=== PATIENT | male | born 1995 | race Hispanic/Latino ===

== ENCOUNTER → 2018-05-12 | Outpatient (CLI) | payer OTHER ==
[~2018-05-12] MED LIST: PROHANCE 279.3MG/ML 5ML VIAL (A9576) As Ordered ONE
--- NOTE | 2018-05-12 10:56 | REP ---
MRI LEFT KNEE WITHOUT AND WITH CONTRAST: HISTORY: Pain in the left knee. Comparison left knee MRI study is from December 22, 2016. Comparison plain films are from October 17, 2016. TECHNIQUE: Postcontrast imaging was included at the insistence of the referring provider. 10 mL of intravenous ProHance was utilized. Pre- and post- gadolinium enhanced images are acquired. Sequences include T1, proton density and T2-weighted scans obtained with and without fat saturation in the usual fashion. MRI FINDINGS: There are two small stable benign bone islands in the proximal tibia, unchanged from prior MR study. The largest measures 8 mm. Cortical and medullary bone signal intensity are otherwise normal. No evidence of significant joint effusion. No evidence of Guerrero's cyst. A tiny fabella is noted posterolaterally. There is a new pattern of fibrosis and/or edema in the infrapatellar fat. Patellar and quadriceps tendons remain intact and unremarkable. No significant joint effusion is seen. There is a lymph node in the popliteal fossa measuring 6 x 12 mm. Anterior and posterior cruciate ligaments are intact. There is no evidence of medial or lateral collateral ligament disruption. No meniscal tear is appreciated. Medial and lateral patellar retinacular structures appear intact. No articular cartilaginous lesion is seen. Post gadolinium enhanced images show no helpful information. No abnormal enhancement. IMPRESSION: There is a new area of mild edema versus fibrosis in the infrapatellar fat. Otherwise normal MRI study of the left knee. No other change from December 22, 2016 prior study. Electronically Signed by Cordell Haney MD 05/12/2018 07:37 P
== END ==
LOC: M RAD 08:45
PROVIDERS: ATTEND Physician Assistant
DX: M25.562 Pain in left knee (principal)
CPT/HCPCS: 73723; A9576